=== PATIENT | male | born 1970 | race Hispanic/Latino ===

== ENCOUNTER 2018-01-29 11:33 | Inpatient (IN) | payer OTHER, SELFPAY ==
[2018-01-29 12:28] LABS: #Eosinphils 0.1 thou/uL (0.0-0.7); #Lymphocytes 1.7 thou/uL (1.20-3.40); #Monocytes 0.9 thou/uL (0.11-0.59); #Neutrophils 9.1 thou/uL (1.40-6.50); %Basophils 0.3 % (0.0-1.0); %Eosinophils 0.6 % (0.0-10.0); %Lymphocytes 14.6 % (21.0-51.0); %Monocytes 7.8 % (0.0-10.0); %Neutrophils 76.8 % (42.0-75.0); Hemoglobin 13.4 g/dL (14.0-18.0); Mean Corpuscular HGB CONC 34.1 g/dL (32.0-36.0); Mean Corpuscular Hemoglobin 29.1 pg (27.0-31.0); Mean Corpuscular Volume 85.3 fL (78.0-98.0); Mean Platelet Volume 7.4 fL (7.4-10.4); Platelet Count 283 thou/uL (130-400); Red Blood Cell (RBC) Count 4.59 mill/uL (4.70-6.10); White Blood Cell (WBC) Count 11.8 thou/uL (4.8-10.8)
[2018-01-29 12:50] LABS: ALT (SGPT) 28 U/L (8-55); AST (SGOT) 22 U/L (5-34); Albumin 3.8 g/dL (3.5-5.0); Alkaline Phosphatase 125 U/L (40-150); Anion Gap 14 mmol/L (10-20); BUN (Urea Nitrogen) 15 mg/dL (8.9-20.6); Bilirubin, Total 0.9 mg/dL (0.2-1.2); Calc. Creatinine Clearance 0 mL/min (70-130); Calcium 9.4 mg/dL (7.8-10.44); Carbon Dioxide 24 mmol/L (22-29); Chloride 100 mmol/L (98-107); Estimated GFR-MDRD 59; Globulin 3.7 g/dL (2.4-3.5); Glucose 201 mg/dL (70-105); Protein, Total 7.5 g/dL (6.0-8.3); Sodium 134 mmol/L (136-145)
[2018-01-29] MEDS ORDERED: Ondansetron HCl/PF 4 MG/2 ML Vial ONE (13:33)
[2018-01-29] MEDS ORDERED: Piperacillin/Tazobactam 4.5 GM VIAL ONE (13:52)
--- NOTE | 2018-01-29 13:54 | RAD ---
LEFT FOOT THREE VIEWS: History: Pain. Comparison: None. FINDINGS: There appears to be a plantar heel soft tissue bandage. No acute displaced fracture or malalignment. Lisfranc interval is maintained. Moderate vascular calci fications. Large plantar calcaneal spur. IMPRESSION: Chronic changes. No acute abnormality. POS: [facility]
--- NOTE | 2018-01-29 14:21 | RAD ---
CHEST 1 VIEW: Date: 01/29/18 HISTORY: Pain. COMPARISON: None. FINDINGS: Lungs are hypoinflated with vascular crowding. No pneumothorax or effusion. No acute osseous abnormal ity. IMPRESSION: Lung hypoinflation and vascular crowding. POS: [facility]
[2018-01-29 17:45] VITALS: BMI 26.6
[2018-01-29] MEDS ORDERED: Ondansetron ODT 4 MG TAB SL PRN (18:31)
[2018-01-29] MEDS ORDERED: Acetaminophen 325 MG TAB PO PRN (18:31)
[2018-01-29] MEDS ORDERED: Ondansetron HCl/PF 4 MG/2 ML Vial IVP PRN (18:31)
[2018-01-29] MEDS ORDERED: HumaLOG 300 UNITS/3 ML VIAL SC PRN (19:40)
[2018-01-29] MEDS ORDERED: HYDROcodone/Acetaminophen 5/325 mg Tablet PO PRN (19:40)
[2018-01-29] MEDS ORDERED: Dextrose 5% in Water 1,000 ML IV PRN (19:40)
[2018-01-29] MEDS ORDERED: Dextrose 50% Abboject 50 ML SYRINGE SLOW IVP PRN (19:40)
[2018-01-29] MEDS ORDERED: Ondansetron ODT 4 MG TAB PO PRN (19:40)
[2018-01-29] MEDS ORDERED: Piperacillin/Tazobactam 3.375 GM in Sodium Chloride 0.9% 100 ML IVPB SCH (20:15)
[2018-01-29] MEDS: Insulin Glargine 20 UNITS in Pre-Filled Syringe 1 EACH SC SCH (21:43)
[2018-01-29] MEDS: Famotidine 20 MG TAB PO SCH (21:43)
[2018-01-29] MEDS: Sodium Chloride 0.9% 1,000 ML IV SCH (22:46)
[2018-01-29] MEDS: Docusate 100 MG CAP PO SCH (22:47)
[2018-01-30] MEDS: Piperacillin/Tazobactam 3.375 GM in Sodium Chloride 0.9% 100 ML IVPB SCH ×4 (02:29→21:25)
[2018-01-30] MEDS: Vancomycin HCl 1 GM in Premix Bag 1 BAG IVPB SCH ×2 (02:29→15:26)
--- NOTE | 2018-01-30 02:45 | HP ---
DATE OF ADMISSION: 01/29/2018 CHIEF COMPLAINT: Left leg pain. HISTORY OF PRESENT ILLNESS: This is a 47-year-old young male with known past medical histor y of type 2 diabetes mellitus diagnosed more than 20 years ago. 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 Following which, he was having some scab formation and had some pussy discharge and patien t was working with his shoes on and he stepped on a hard rock following which, he had a severe pain a nd for the past 2 days, he has been having low grade fevers, weakness, and nausea, so he decided to c ome to the hospital for further evaluation. When patient presented to the ER, he had no fever but shirley d a mildly elevated white count of 11.8 and looked very dehydrated. He had a wound culture been obta ined from the ER. Patient rates the pain of 5/10 in intensity and has basically not much of pain sen sation. His left leg is markedly swollen than the right leg. He denies having any history of blood clots. Denies having any abdominal pain, no nausea, no vomiting. PAST MEDICAL HISTORY: 1. Type 2 diabetes mellitus. 2. 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 3. Glaucoma. 4. History of left foot diabetic foot infection with multiple heel surgeries. 5. Diabetic retinopathy. PAST SURGICAL HISTORY: 1. Status post eye surgery. 2. History of left heel debridement in the past. ALLERGIES: No known drug allergies. FAMILY HISTORY: Multiple family members with type 2 diabetes mellitus, otherwise, no history of any cancer. SOCIAL HISTORY: Patient is . He lives in [place]. 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 HOME MEDICATIONS: Patient is on glipizide 10 mg p.o. b.i.d. and metformin 1000 mg p.o. b.i.d. REVIEW OF SYSTEMS: All 12 systems are reviewed with the patient thoroughly and found to be negative at this time. The following complete review of systems was negative, unless otherwise mentioned in t he HPI or below: Constitutional: Weight loss or gain, sense of well-being, ability to conduct usual activities, exercise tolerance. Skin/Breast: Rash, itching, changes in hair growth or loss, nail c hanges, breast lumps, tenderness, swelling, nipple discharge. Eyes: Vision, double vision, tearing, blind spots, pain. ENT/Mouth: Headaches (location, time of onset, duration, precipitating factors) , vertigo, lightheadedness, injury. Vision, double vision, tearing, blind spots, pain, nose bleeding, colds, obstruction, discharge, dental difficulties, gingival bleeding, dentures, neck stiffness, chelita n, tenderness, masses in thyroid or other areas. Cardiovascular: Precordial pain, substernal distre ss, palpitations, syncope, dyspnea on exertion, orthopnea, nocturnal paroxysmal dyspnea, edema, cyano sis, hypertension, heart murmurs, varicosities, phlebitis, claudication. Respiratory: Pain, shortne ss of breath, wheezing, stridor, cough, hemoptysis, fever or night sweats. Gastrointestinal: Poor a ppetite, dysphagia, indigestion, abdominal pain, heartburn, eructation, nausea, vomiting, hematemesis , jaundice, constipation, or diarrhea, abnormal stools (hoa-colored, tarry, bloody, greasy, foul sme lling), flatulence, hemorrhoids, recent changes in bowel habits. Genitourinary: Urgency, frequency, dysuria, nocturia, hematuria, polyuria, oliguria, unusual (or change in) color of urine, stones, hes itancy, change in size of stream, dribbling, acute retention or incontinence, libido, potency. Muscu loskeletal: Pain, swelling, redness or heat of muscles or joints, limitation, of motion, muscular we akness, atrophy, cramps. Neurologic/Psychiatric: Convulsions, paralyses, tremor, incoordination, pa resthesias, difficulties with memory of speech, sensory or motor disturbances, or muscular coordinati on (ataxia, tremor), emotional problems, anxiety, depression, previous psychiatric care, unusual perc eptions, hallucinations. Allergy/Immunologic: Skin rash, anemia, bleeding tendency, polydipsia, ximena yuria, intolerance to heat or cold. PHYSICAL EXAMINATION: VITAL SIGNS: Blood pressures are 148/81, heart rate is 80, respiratory rate 22, saturation 98%. GENERAL: The patient is moderately built and moderately nourished. He does not appear to be in acut e distress at this time. HEENT: Atraumatic, normocephalic. PERRLA. Extraocular muscles are intact. Oral mucosa is pink and moist. CARDIOVASCULAR: S1, S2 normal. No murmurs, rubs, or gallops. LUNGS: Bilateral air entry was equal. No wheezing, no crackles. ABDOMEN: Soft, nontender. No guarding, no rebound tenderness. Bowel sounds normal. MUSCULOSKELETAL: No calf tenderness. No pedal edema. EXTREMITIES: No joint tenderness, no joint swelling. SKIN: No cyanosis or erythema, no rash, no pallor. NEUROLOGIC: Cranial nerve examination II through XII intact. No focal deficits were noted at this t true. LABORATORY DATA: Sodium is 134, potassium 4.0, chloride is 100, bicarbonate is 24, BUN 15, creatinin e 1.31. WBC 11.8, hemoglobin is 13.4, hematocrit 39.2. X-ray of the foot was unremarkable. Chest x-ray was unremarkable. No evidence of any acute cardiopu lmonary process. ASSESSMENT AND PLAN: 1. Sepsis. 2. Acute on chronic left foot infection. 3. Rule out peripheral arterial disease. 4. Rule out left leg deep venous thrombosis. 5. Type 2 diabetes mellitus. 6. Acute kidney injury. 7. Severe dehydration PLAN: 1. Plan is to start the patient on IV antibiotics at this time. We will do Zosyn and vancomycin and we will do renal protocol. 2. Patient will be continued on IV antibiotics with Zosyn, vancomycin with renal protocol. We will plan to consult Dr. Rowe in the morning and we will closely monitor. 3. Patient has evidence of possible peripheral arterial disease. We will do arterial Doppler to [facility] for evidence of peripheral arterial disease. 4. Patient has markedly swollen left lower extremity compared to the right lower extremity. We will do ultrasound Doppler to look for any evidence of DVT. 5. Patient has signs suggestive of a possible osteomyelitis. We will do MRI of the left foot. 6. Type 2 diabetes mellitus, well-controlled. We will start the patient on Lantus 20 units and rest art the patient's glipizide. Watch for any hypoglycemia. 7. Plan to keep the blood sugar in the 140-180. 8. Deep venous thrombosis prophylaxis. Lovenox. I spent 75 minutes with this patient.
[2018-01-30] MEDS: Sodium Chloride 0.9% 1,000 ML IV SCH ×2 (04:42→15:26)
[2018-01-30 06:21] LABS: #Eosinphils 0.2 thou/uL (0.0-0.7); #Lymphocytes 1.8 thou/uL (1.20-3.40); #Neutrophils 6.1 thou/uL (1.40-6.50); %Basophils 0.4 % (0.0-1.0); %Eosinophils 2.6 % (0.0-10.0); %Lymphocytes 19.4 % (21.0-51.0); %Monocytes 10.5 % (0.0-10.0); %Neutrophils 67.1 % (42.0-75.0); Hemoglobin 11.8 g/dL (14.0-18.0); Mean Corpuscular HGB CONC 33.3 g/dL (32.0-36.0); Mean Corpuscular Hemoglobin 28.6 pg (27.0-31.0); Mean Platelet Volume 7.7 fL (7.4-10.4); Platelet Count 260 thou/uL (130-400); RBC Distribution Width 11.9 % (11.5-14.5); Red Blood Cell (RBC) Count 4.12 mill/uL (4.70-6.10); White Blood Cell (WBC) Count 9.1 thou/uL (4.8-10.8)
[2018-01-30 06:28] LABS: Anion Gap 11 mmol/L (10-20); BUN (Urea Nitrogen) 12 mg/dL (8.9-20.6); Calc. Creatinine Clearance 89 mL/min (70-130); Calcium 8.6 mg/dL (7.8-10.44); Carbon Dioxide 26 mmol/L (22-29); Chloride 102 mmol/L (98-107); Estimated GFR-MDRD 67; Glucose 226 mg/dL (70-105); Potassium 4.6 mmol/L (3.5-5.1); Sodium 134 mmol/L (136-145)
[2018-01-30] MEDS: Famotidine 20 MG TAB PO SCH ×2 (09:45→21:24)
[2018-01-30] MEDS: Enoxaparin Sodium 40 MG/0.4 ML SYRINGE SC SCH (09:45)
[2018-01-30] MEDS: Docusate 100 MG CAP PO SCH ×2 (09:45→21:24)
--- NOTE | 2018-01-30 11:41 | ULT ---
LEFT LOWER EXTREMITY VENOUS DOPPLER WITH SPECTRAL ANALYSIS AND COLOWFLOW EVALUATION: 01/30/2018 HISTORY: Left lower extremity swelling/edema. Nonhealing ulcer to heel of foot. TECHNIQUE: Diaz-scale, color-flow, Doppler evaluation, and spectral analysis of the left lower extremity venous structures is performed with 2D imaging. The left lower extremity common femoral, superficial femora l, popliteal, posterior tibial, most proximal greater saphenous, and profunda femoral veins are image d. FINDINGS: There is normal lumen compressibility, flow, and augmentation in the visualized deep venous structure s of the left lower extremity. IMPRESSION: No evidence of a deep venous thrombosis involving the visualized deep venous structures of the left l ower extremity. POS: [facility]
--- NOTE | 2018-01-30 11:41 | PDOC.PN ---
- Subjective Encounter Start Date: 01/30/18 Encounter Start Time: 11:40 Feels ok. No new concerns. His foot does not hurt right now. - Objective Resuscitation Status: Resuscitation Status FULL:Full Resuscitation Vital Signs & Weight: Vital Signs (12 hours) Temp Pulse Resp BP Pulse Ox 01/30/18 08:10 99.2 F 77 20 98 01/30/18 08:00 99.2 F 77 20 124/73 98 01/30/18 03:59 98.7 F 76 16 114/66 97 Weight Weight 174 lb 13.931 oz I&O: 01/29/18 01/30/18 01/31/18 06:59 06:59 06:59 Intake Total 1980 Balance 1979 Result Diagrams: 01/30/18 05:17 01/30/18 05:17 Additional Labs: Accuchecks 01/30/18 01/29/18 01/29/18 05:28 21:48 20:33 POC Glucose 204 H 354 H 271 H Phys Exam - Physical Examination Constitutional: NAD Respiratory: no wheezing, no rales, no rhonchi, clear to auscultation bilateral Cardiovascular: RRR, no significant murmur Diminished pulses in the left foot. Gastrointestinal: soft, non-tender, no distention, positive bowel sounds Diminished sensation of the foot. Deviation from normal: Chronic darkening of the skin of the left calf. Ulcer left posterior heel. -: No drainage or significant erythema. Dx/Plan (1) Diabetic ulcer of left heel Code(s): E11.621 - TYPE 2 DIABETES MELLITUS WITH FOOT ULCER; L97.429 - NON-PRS CHRONIC ULCER OF LEFT HEEL AND MIDFOOT W UNSP SEVERT Status: Acute (2) DM type 2 (diabetes mellitus, type 2) Status: Chronic Comment: on ISS/Levemir - Plan * Ulcer with increased pain following minor trauma to the foot in the presence of a more chronic ulcer. * Evaluating for PVD and possible osteo. Arterial dopplers and MRI pending * Manage blood sugars.
--- NOTE | 2018-01-30 11:48 | ULT ---
LEFT LOWER EXTREMITY ARTERIAL DOPPLER EVALUATION WITH SPECTRAL ANALYSIS AND COLORFLOW EVALUATION: 01/30/2018 HISTORY: Nonhealing ulcer to heel of left foot. Evaluate for peripheral vascular disease. Swelling, left low er extremity. FINDINGS: Diaz-scale, color-flow, Doppler evaluation, and spectral analysis of the left lower extremity arteria l vessels is performed with 2D imaging. There are triphasic waveforms seen within the femoral and popliteal arteries, as well as dorsalis ped is artery, left lower extremity. However, there are monophasic waveforms seen within the left lower extremity anterior and posterior tibial arteries. There is a biphasic wave-form seen in the left lower extremity profunda femoral artery with a decreas ed peak systolic velocity. Findings may be related to narrowing at the origin of the profunda femora l artery. IMPRESSION: 1. Atherosclerotic vascular disease involving the anterior and posterior tibial arteries. 2. Biphasic wave-form with diminished peak systolic velocity in the left profunda femoral artery, wh ich may represent focal narrowing at the origin of the profunda femoral artery. POS: [facility]
[2018-01-30] MEDS: HumaLOG 300 UNITS/3 ML VIAL SC PRN (14:13)
--- NOTE | 2018-01-30 15:39 | MRI ---
LEFT FOOT MRI WITHOUT IV CONTRAST: HISTORY: A 47-year-old male with a history of nonhealing ulcer on the heel of the foot with concern for osteom yelitis. TECHNIQUE: Multiplanar, multisequence MRI examination of the left ankle and hindfoot is performed. FINDINGS: There is a fairly large area of ulceration and skin defect involving the plantar surface of the heel. There is a fairly well circumscribed fluid collection noted in the deeper subcutaneous tissues of t he heel, overlying the plantar fascia insertion region. This collection measures approximately 1 x 2 x 1.3 cm in size and probably represents a small abscess. No evidence for osteomyelitis. Mild incr eased signal within the plantar fascia, in a small enthesophyte, evidence for plantar fasciopathy. T he Achilles tendon is unremarkable. Diffuse subcutaneous edema and swelling of the ankle and hindfoo t noted. Tiny amount of fluid within the flexor tendon sheaths. No evidence for acute tendon tear o r injury involving the peroneus, flexor, or extensor tendons. The sinus tarsi and spring ligament re gion is unremarkable. No talar dome osteochondral defect. IMPRESSION: Skin and subcutaneous abnormality of the heel, consistent with a known ulcer, with a small fluid dmitriy ection, probable abscess, in the deeper soft tissues of the heel, overlying the region of the plantar fascia insertion. A tiny amount of fluid within the flexor tendon sheaths. Diffuse subcutaneous ed toña and fat stranding. No evidence for other significant acute internal derangement. POS: [facility]
[2018-01-30] MEDS: Insulin Glargine 20 UNITS in Pre-Filled Syringe 1 EACH SC SCH (21:54)
--- NOTE | 2018-01-30 23:42 | CON ---
DATE OF CONSULTATION: 01/30/2018 REASON FOR CONSULTATION: Left heel ulcer, bacteremia. HISTORY OF PRESENT ILLNESS: A 47-year-old patient whom I had seen in the past about a year ago when he presented with a history of left heel inflammatory process associated with type 2 diabetes mellitu s and severe neuropathy. At that time, there was evidence of osteomyelitis on the MRI and he was kasia ated with long-term intravenous antimicrobial therapy. Now, he presents with a purulent discharge fr om the left heel after stepping on a hard rock. He had some pain for 2 days with fever, came to the hospital. There is swelling in the right lower extremity. The initial white cell count 11.8, creati nine 1.3. He had an MRI of the left foot which showed small fluid collection, probable abscess and d eeper soft tissues at the heel overlying the region of the plantar fascia insertion. No evidence of other abnormality and no bony abnormality noted. Currently, he denies any headaches, visual symptoms , sore throat, odynophagia, dysphagia, no chest pain, no dyspnea, no abdominal pain or diarrhea genit ourinary symptoms. PAST MEDICAL HISTORY: Includes type 2 diabetes mellitus, neuropathy, retinopathy, left heel puncture injury with penetrating wound and osteomyelitis treated to completion of IV antimicrobial therapy, g laucoma and type 2 diabetes. PAST SURGICAL HISTORY: Eye surgery, left heel debridement in the past. ALLERGIES: None. FAMILY HISTORY: Type 2 diabetes. 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 Never a smoker. CURRENT MEDICATIONS: Dextrose, Colace, Pepcid, glucagon, insulin, Zosyn, vancomycin. PHYSICAL EXAMINATION: VITAL SIGNS: T-max 99.2, blood pressure 120/73, pulse 74, respirations 16, O2 sat 96%. SKIN: Shows the scabbed over ulcerated area in the bottom aspect of the left heel and another shallo wer ulcer in the posterior aspect of the same heel, mild faint erythema surrounding the bottom ulcera harman area. He does not have pain on palpation of this area. No fluid is expressible. No lymphadenop athy. HEENT: Noncontributory. NECK: Supple. LUNGS: Symmetric clear breath sounds. HEART: S1, S2, regular rate. ABDOMEN: Soft, not distended or tender. EXTREMITIES: No joint inflammatory activity. Pulses 1+ in dorsalis pedis. Moves extremities equall y. NEUROLOGIC: Cognitive function appears to be intact. LABORATORY DATA: White cell count 11.8-9.1, hemoglobin 13, platelets 283. Sodium 134, creatinine 1. 18, bilirubin 0.9, AST 22, ALT 28, alkaline phosphatase 125. C-reactive protein 17.42, albumin 3.8. ASSESSMENT: Type 2 diabetes with neuropathy and chronic ulcer bottom aspect of left foot with prior osteomyelitis treated to completion now with small abscess in the soft tissues of the left heel, but no evidence of osteomyelitis. DISCUSSION: Patient will need a surgical debridement probably can be done at the bedside. Cultures submitted and then probably discharge planning with oral antimicrobial therapy. I would probably use Keflex plus/minus ciprofloxacin, depending on susceptibility of other organisms.
[2018-01-31 02:43] LABS: Vancomycin, Trough 8.9 ug/mL
[2018-01-31] MEDS: Piperacillin/Tazobactam 3.375 GM in Sodium Chloride 0.9% 100 ML IVPB SCH ×4 (03:00→22:19)
[2018-01-31] MEDS: Vancomycin HCl 1 GM in Premix Bag 1 BAG IVPB SCH ×2 (03:01→16:12)
[2018-01-31] MEDS: Sodium Chloride 0.9% 1,000 ML IV SCH ×3 (03:30→23:23)
[2018-01-31] MEDS: Docusate 100 MG CAP PO SCH ×2 (09:50→23:23)
[2018-01-31] MEDS: Famotidine 20 MG TAB PO SCH ×2 (09:50→22:19)
[2018-01-31] MEDS: Enoxaparin Sodium 40 MG/0.4 ML SYRINGE SC SCH (09:50)
[2018-01-31] MEDS: HumaLOG 300 UNITS/3 ML VIAL SC PRN ×2 (12:23→16:33)
--- NOTE | 2018-01-31 17:13 | PDOC.PN ---
- Subjective Encounter Start Date: 01/31/18 Encounter Start Time: 17:10 Doing well. No significant pain. - Objective Resuscitation Status: Resuscitation Status FULL:Full Resuscitation Vital Signs & Weight: Vital Signs (12 hours) Temp Pulse Resp BP Pulse Ox 01/31/18 15:57 98.3 F 68 14 140/83 96 01/31/18 11:15 98.5 F 74 16 117/72 97 01/31/18 09:30 98 F 67 16 97 01/31/18 07:26 98 F 67 14 143/80 H 97 Weight Admit Weight 174 lb Weight 174 lb 13.931 oz I&O: 01/30/18 01/31/18 02/01/18 06:59 06:59 06:59 Intake Total 1979 Balance 1979 Result Diagrams: 01/30/18 05:17 01/30/18 05:17 Additional Labs: Accuchecks 01/31/18 01/31/18 01/31/18 15:53 11:12 05:39 POC Glucose 167 H 166 H 195 H 01/30/18 21:05 POC Glucose 199 H Phys Exam - Physical Examination Constitutional: NAD Respiratory: no wheezing, no rales, no rhonchi, clear to auscultation bilateral Cardiovascular: RRR, no significant murmur Gastrointestinal: soft, non-tender, no distention, positive bowel sounds Musculoskeletal: no edema Left foot wrapped. Dx/Plan (1) Diabetic ulcer of left heel Code(s): E11.621 - TYPE 2 DIABETES MELLITUS WITH FOOT ULCER; L97.429 - NON-PRS CHRONIC ULCER OF LEFT HEEL AND MIDFOOT W UNSP SEVERT Status: Acute (2) DM type 2 (diabetes mellitus, type 2) Status: Chronic Comment: on ISS/Levemir. Blood sugars all below 200. (3) MRSA (methicillin resistant Staphylococcus aureus) infection Code(s): A49.02 - METHICILLIN RESIS STAPH INFECTION, UNSP SITE Status: Acute - Plan * Continue IV abx until tomorrow. Place in isolation for MRSA. Will need to coordinate with WC in the morning. He will need to have outpatient follow up and will need to have some way to off load the ulcerated area. Explained the need to stay with treatment to resolution to avoid worsening infection and the potential for osteo.
[2018-01-31] MEDS ORDERED: VANCOMYCIN IVPB PRN (17:20)
[2018-01-31] MEDS ORDERED: Vancomycin HCl 500 MG in Sodium Chloride 0.9% 100 ML IVPB SCH (17:45)
[2018-01-31] MEDS: Insulin Glargine 20 UNITS in Pre-Filled Syringe 1 EACH SC SCH (22:20)
[2018-02-01] MEDS: Piperacillin/Tazobactam 3.375 GM in Sodium Chloride 0.9% 100 ML IVPB SCH ×4 (02:22→20:22)
[2018-02-01] MEDS: Vancomycin HCl 1.5 GM in Sodium Chloride 0.9% 250 ML 300 ML IVPB SCH ×2 (03:40→18:55)
[2018-02-01] MEDS: Sodium Chloride 0.9% 1,000 ML IV SCH ×2 (06:45→20:23)
[2018-02-01] MEDS: Enoxaparin Sodium 40 MG/0.4 ML SYRINGE SC SCH (07:51)
[2018-02-01] MEDS: Famotidine 20 MG TAB PO SCH ×2 (07:51→20:21)
[2018-02-01] MEDS: Docusate 100 MG CAP PO SCH ×2 (07:51→20:22)
[2018-02-01] MEDS: Insulin Glargine 20 UNITS in Pre-Filled Syringe 1 EACH SC SCH (21:30)
[2018-02-02] MEDS: Piperacillin/Tazobactam 3.375 GM in Sodium Chloride 0.9% 100 ML IVPB SCH ×4 (01:56→20:52)
[2018-02-02] MEDS: Sodium Chloride 0.9% 1,000 ML IV SCH ×2 (03:22→20:52)
[2018-02-02] MEDS: Vancomycin HCl 1.5 GM in Sodium Chloride 0.9% 250 ML 300 ML IVPB SCH ×2 (03:24→17:12)
[2018-02-02 04:08] LABS: Vancomycin, Trough 17.6 ug/mL
[2018-02-02] MEDS: Docusate 100 MG CAP PO SCH (09:59)
[2018-02-02] MEDS: Famotidine 20 MG TAB PO SCH (09:59)
[2018-02-02] MEDS: Enoxaparin Sodium 40 MG/0.4 ML SYRINGE SC SCH (09:59)
--- NOTE | 2018-02-02 11:55 | CON ---
DATE OF CONSULTATION: 02/01/2018 HISTORY OF PRESENT ILLNESS: Mr. Slater is a gentleman known to me from previous admission. He has a wound on his left heel, which was managed at the outpatient clinic for some time. He healed the wound on his posterior heel but says that he stepped on a hard rock last week at work and injured the bottom of his foot, and he came in because he was having pain and swelling in his foot. I saw him yesterday with the wound care team and noted eschar on the bottom of his heel. MRI had revealed a fluid collection underlying these wounds, but no evidence of osteomyelitis, and so a sharp excisional debridement was performed at the bedside. A mostly partial thickness wound was unroofed with one full thickness area inferiorly, which tunnelled to the fluid collection, which was completely drained. He is not having any pain in his heel and is feeling better today. PAST MEDICAL HISTORY: Diabetes with severe neuropathy, and glaucoma. PAST SURGICAL HISTORY: Previous debridement of heel wound, eye surgery. SOCIAL HISTORY: The patient is [place] speaking only. He does not smoke, drink or use illicit drugs. MEDICATIONS: Glipizide, metformin. ALLERGIES: No known drug allergies. REVIEW of systems: 10 system review of systems is negative except per history of present illness. Patient did have malaise and nausea on admission but this has resolved. PHYSICAL EXAMINATION: GENERAL: Reveals a healthy appearing man in no acute distress. HEENT: Unremarkable. NECK: Supple without lymphadenopathy or thyroid nodules. He is not flushed or toxic appearance. No jaundice or icteric. HEART: Regular in its rate and rhythm. I do not appreciate any murmur. LUNGS: Clear. ABDOMEN: Soft and tender. EXTREMITIES: He does have normal pulses in his feet. No wounds on his right foot, but on his left foot, he has heel wound as previously described in the history of present illness. ASSESSMENT: Right heel wound and abscess is being packed and dressed by the wound care team. He can follow up as an outpatient in the wound care clinic after learning how to do his dressing changes and after culture results return to guide antibiotic choice. [place]
[2018-02-02] MEDS: HumaLOG 300 UNITS/3 ML VIAL SC PRN (14:30)
[2018-02-02 15:57] VITALS: BP 162/92; TEMP 97.9
--- NOTE | 2018-02-02 21:34 | PDOC.GSPN ---
Surgery Progress Note: Subj - Subjective Narrative: Mr. Slater is feeling fine today. He denies any pain in his foot. This wound is healthy in appearance. It is clean and granulating and there is no expressible drainage. Cultures so far show group B strep MRSA and Proteus. The wound was redressed by the healthcare team. From a surgical standpoint he is ready for discharge with daily dressing changes. He can follow up with me or in the outpatient wound care center in a week or 2, at which time the small abscess may be healed. Surgery Progress Note: Obj - Vital signs Vital signs: Vital Signs - Most Recent Temp Pulse Resp BP Pulse Ox 97.9 F 67 16 162/92 H 97 02/02/18 15:44 02/02/18 15:44 02/02/18 15:44 02/02/18 15:44 02/02/18 15:44 Surgery Progress Note: Results - Labs Result Diagrams: 01/30/18 05:17 01/30/18 05:17 Lab results: Laboratory Results - last 24 hr 02/02/18 02/02/18 12:12 16:22 POC Glucose 166 H 123 H
== END 2018-02-02 20:50 | disposition home or self-care (01) | DRG 854 ==
LOC: ERS 11:33 → SURG B 16:08
PROVIDERS: ADMIT Family Medicine; ATTEND Family Medicine
PROC: 0JBR0ZZ Excision of Left Foot Subcutaneous Tissue and Fascia, Open Approach (ICD-10-PCS; principal; 2018-01-31)
DX: A41.9 Sepsis, unspecified organism (principal); N17.9 Acute kidney failure, unspecified; L02.612 Cutaneous abscess of left foot; E11.319 Type 2 diabetes mellitus with unspecified diabetic retinopathy without macular edema; H40.9 Unspecified glaucoma; E86.0 Dehydration; E11.40 Type 2 diabetes mellitus with diabetic neuropathy, unspecified; E11.621 Type 2 diabetes mellitus with foot ulcer; L97.529 Non-pressure chronic ulcer of other part of left foot with unspecified severity; B95.62 Methicillin resistant Staphylococcus aureus infection as the cause of diseases classified elsewhere; Z79.84 Long term (current) use of oral hypoglycemic drugs; Z83.3 Family history of diabetes mellitus
CPT/HCPCS: 36415; 36416; 71045; 80048; 80053; 80202; 83605; 85025; 85652; 86140; 87040; 87070; 87077; 87149; 87186; 87205; 93005; 93923; A4216; G8978-GP-CJ; G8979-GP-CJ; G8980-GP-CJ; G8987-GO-CI; G8988-GO-CI; G8989-GO-CI; J1650; J2270; J2405; J2543; J3370; J7050

== ENCOUNTER 2018-07-24 08:41 | Emergency (ER) | payer OTHER, SELFPAY ==
[2018-07-24] MEDS ORDERED: Lidocaine 1% PF 5 ML VIAL ONE (10:02)
== END 2018-07-24 10:30 | disposition home or self-care (01) ==
LOC: ERS 08:41
DX: L02.416 Cutaneous abscess of left lower limb (principal); E11.40 Type 2 diabetes mellitus with diabetic neuropathy, unspecified; Z79.84 Long term (current) use of oral hypoglycemic drugs
CPT/HCPCS: 10061; 87070; 87077; 87205; J2001

== ENCOUNTER 2018-07-28 08:09 | Outpatient (CLI) | payer SELFPAY ==
--- NOTE | 2018-07-28 10:02 | PRG ---
DATE OF SERVICE: 07/28/2018 HISTORY OF PRESENT ILLNESS: Mr. Ole Slater is a pleasant 48-year-old gentleman, who presents to the [facility] Center for evaluation of a wound of the left heel subsequent to debridement at bedside by Dr. Maria Victoria Cifuentes on 01/31/2018. Apparently, the patient was seen by Dr. Cifuentes yesterday. The patient's medical history is significant for diabetes mellitus, vision loss in right eye, glaucoma, chronic kidney disease stage 2, and anemia. Since the patient's visit to the Wound Center on 05/05/2016, Mr. Slater underwent irrigation and debridement of a left heel ulcer with underlying calcaneal osteomyelitis on 12/15/[address] Carmine Woods. Presently, the patient's medications consist of insulin, glipizide, metformin, Bactrim, and cephalexin. PHYSICAL EXAMINATION: VITAL SIGNS: Temperature 98, pulse 79, respirations 16, blood pressure 128/59. Accu-Chek 288. EXTREMITIES: Multiple small superficial wounds are present in an area encompassing approximately 2.5 x 5.5 cm. Granulation tissue is present within the margins of each wound. No purulent drainage is associated with any of the wounds. No erythema of the skin surrounding any of the wounds is present. No maceration of the skin of the periwound of any of the wounds is noted. A dorsalis pedis pulse is easily palpable on the left. No significant edema of the left foot is present on exam today. ASSESSMENT AND PLAN: 1. Multiple small superficial wounds of left heel as described above. Dressing changes of Xeroform gauze, 4x4s, Kerlix, and TREVA are to be performed on a daily basis after cleansing and irrigation. I will see Mr. Slater again in 2 weeks. The patient is to continue p.o. antibiotics as previously prescribed. 2. Diabetes mellitus. The patient's Accu-Chek in clinic today is 288. The patient has been told that for optimal wound healing, his blood glucoses should remain below 150. 3. Vision loss, right eye. 4. Glaucoma. 5. Chronic kidney disease stage 2. 6. Anemia. Job ID: [id number]
[2018-07-28] MEDS ORDERED: Sodium Chloride 0.9% 15 ML NEB ONE (15:29)
== END 2018-07-28 08:10 | disposition home or self-care (01) ==
LOC: WCC 08:09
PROVIDERS: ATTEND Family Medicine
DX: T81.89XD Other complications of procedures, not elsewhere classified, subsequent encounter (principal); E11.621 Type 2 diabetes mellitus with foot ulcer; L97.429 Non-pressure chronic ulcer of left heel and midfoot with unspecified severity; E11.22 Type 2 diabetes mellitus with diabetic chronic kidney disease; N18.2 Chronic kidney disease, stage 2 (mild); D63.1 Anemia in chronic kidney disease; H54.61 Unqualified visual loss, right eye, normal vision left eye; H40.9 Unspecified glaucoma
CPT/HCPCS: 36416

== ENCOUNTER 2023-08-04 15:38 | Outpatient (CLI) | payer BC | END 2023-08-04 15:39 | disposition home or self-care (01) | LOC: BICRAD 15:38 | PROVIDERS: ATTEND Preventive Medicine Undersea and Hyperbaric Medicine | DX: E08.621 Diabetes mellitus due to underlying condition with foot ulcer (principal); L97.408 Non-pressure chronic ulcer of unspecified heel and midfoot with other specified severity; M86.8X7 Other osteomyelitis, ankle and foot; M34.9 Systemic sclerosis, unspecified ==